=== PATIENT | male | born 2000 | race Caucasian/White ===

== ENCOUNTER → 2025-01-12 17:34 | Outpatient (REF) | payer BC, SELFPAY | LOC: RCS 17:34 | PROVIDERS: ATTENDING PHYSICIAN Nurse Practitioner Adult Health; FAMILY PHYSICIAN Internal Medicine | DX: Z00.00 Encounter for general adult medical examination without abnormal findings (principal); Z82.49 Family history of ischemic heart disease and other diseases of the circulatory system | CPT/HCPCS: 93306 ==